=== PATIENT | female | born 1980 | race Hispanic/Latino ===

== ENCOUNTER 2024-06-12 08:21 | Emergency (ER) | payer OTHER ==
[~2024-06-12] VITALS: Ht 152.4 cm; Wt 72.0 kg
[2024-06-12 08:44] VITALS: BP 186/111; PULSE 72; RESP 18; TEMP 98; O2SAT 98
[2024-06-12] MEDS ORDERED: NS 1000ML 1,000 ML ONE (08:48)
[2024-06-12] MEDS: NS 1000ML 1,000 ML STA (08:50)
[2024-06-12 09:01] LABS: BASOPHIL % 0.5 % (0.1-1.2); EOSINOPHIL # 0.2 10^3/uL (0.0-0.2); EOSINOPHIL % 2.6 % (0.0-5.0); HEMATOCRIT(ML) 40.5 % (36.0-46.0); HEMOGLOBIN 13.6 g/dL (12.0-15.0); IG % 0.2 % (0.00-0.50); LYMPHOCYTES # 2.41 10^3/uL1 (1.0-4.8); LYMPHOCYTES % 38.5 % (24.0-44.0); MEAN CORP HGB 32.9 pg (26-34); MEAN CORP HGB CONCENTRATION 33.6 g/dL (33-36.5); MEAN CORP VOLUME 97.8 fL (78-100); MONOCYTES # 0.5 10^3/uL (0.3-0.8); NEUTROPHIL # 3.2 10^3/uL (1.8-7.7); NEUTROPHILS % 50.2 % (41.0-85.0); RED BLOOD CELL 4.14 10^6/uL (4.00-5.20); WHITE BLOOD CELL 6.3 10^3/uL (4.5-11.0)
[2024-06-12 09:18] LABS: ALBUMIN(ML) 3.1 g/dL (3.4-5.0); ANION GAP 12.5; BUN/CREATININE RATIO 16.9 (10.0-20.0); CALCIUM 8.5 mg/dL (8.4-10.5); CARBON DIOXIDE 25.2 mmol/L (20.0-32); CREATININE SERUM 0.71 mg/dL (0.59-1.40); EST GFR, NON-AA 89.4 (>/=60); POTASSIUM 3.7 mmol/L (3.6-5.2)
[2024-06-12] MEDS ORDERED: TORADOL ONE (09:49)
[2024-06-12] MEDS: TORADOL IV STA (09:52)
[2024-06-12] MEDS ORDERED: KETO10TA PO (10:00)
[2024-06-12] MEDS ORDERED: ONDA-226 PO (10:00)
== END 2024-06-12 10:13 | disposition home or self-care (01) ==
LOC: ER 08:21
DX: T67.2XXA Heat cramp, initial encounter (principal); I10 Essential (primary) hypertension; F17.210 Nicotine dependence, cigarettes, uncomplicated; Z90.49 Acquired absence of other specified parts of digestive tract; Z90.710 Acquired absence of both cervix and uterus; X58.XXXA Exposure to other specified factors, initial encounter; Y93.89 Activity, other specified; Y92.89 Other specified places as the place of occurrence of the external cause; Y99.8 Other external cause status
CPT/HCPCS: 99284; 96374; 96361; 80053; 85025; 36415; 84703; 93005; J7030; J1885